=== PATIENT | male | born 1955 | race Caucasian/White ===

== ENCOUNTER → 2019-04-17 | Outpatient (CLI) | payer BC, OTHER ==
[~2019-04-17] MED LIST: FISH100049 PO; LISI-538 PO; SIMV20TA2 PO
--- NOTE | 2019-04-20 18:21 | SLEEPHOME ---
DATE OF PROCEDURE: 04/17/2019 ORDERED BY: Aster Alexandra [facility] home sleep testing was performed due to concern for the obstructive sleep apnea syndrome. For testing a nocturnal T3 respiratory monitoring device was used. Continuous record was made of pulse, oxygen saturation, airflow, chest, abdominal strain and body position. 9 hours and 59 minutes of data were reviewed. There were 7 hours and 32 minutes marked as time in bed. During the interval marked time in bed, there 225 respiratory events identified of 10 seconds in duration or greater for respiratory event index of 29.8. The events were primarily obstructive. Baseline pulse rate 68, pulse rate ranged 55-95. Baseline saturation 92%. Saturations fell as low as 77% with an oxygen desaturation index of 25.5. Testing was performed in both the supine and nonsupine positions. IMPRESSION: Abnormal home sleep testing with repetitive respiratory events and oxygen desaturations to 77% with a respiratory event index of 29.8 is consistent with the obstructive sleep apnea syndrome. RECOMMENDATIONS: The patient should be encouraged to undergo a formal sleep evaluation and in laboratory pressure titration.
== END ==
LOC: M SLEEP HO 10:47
PROVIDERS: ATTEND Nurse Practitioner Family
DX: R06.83 Snoring (principal); R79.81 Abnormal blood-gas level

== ENCOUNTER → 2019-04-24 | Outpatient (REF) | payer OTHER ==
[2019-04-24 14:06] LABS: APPEARANCE, URINE CLEAR (CLEAR); BACTERIA, URINE AUTO NEGATIVE (NEGATIVE); BILIRUBIN, URINE AUTO NEGATIVE (NEGATIVE); BLOOD, URINE BLOOD NEGATIVE (NEGATIVE); COLOR, URINE YELLOW (YELLOW); GLUCOSE, URINE (UA) AUTO 2+ mg/dL (NEGATIVE); KETONE, URINE AUTO TRACE mg/dL (NEGATIVE); LEUKOCYTE ESTERASE, URINE AUTO NEGATIVE (NEGATIVE); MUCUS, URINE SMALL (NEGATIVE); NITRITE, URINE AUTO NEGATIVE (NEGATIVE); PROTEIN, URINE AUTO NEGATIVE (NEGATIVE); RBC, URINE AUTO 1 /HPF (0-3); SPECIFIC GRAVITY URINE AUTO 1.021 (1.002-1.035); SQUAMOUS EPITHELIAL CELL UR AU 0 /HPF (0-6); UROBILINOGEN, URINE AUTO 0.2 mg/dL (0.0-2.0); WBC, URINE AUTO 0 /HPF (0-3)
== END ==
LOC: M SMT 12:47
PROVIDERS: ATTEND Nurse Practitioner Women's Health
DX: R31.29 Other microscopic hematuria (principal)

== ENCOUNTER → 2019-09-29 | Outpatient (REF) | payer OTHER ==
[2019-09-29 13:58] LABS: AMORPHOUS SEDIMENT MODERATE (NEGATIVE); APPEARANCE, URINE TURBID (CLEAR); BACTERIA, URINE AUTO NEGATIVE (NEGATIVE); BILIRUBIN, URINE AUTO NEGATIVE (NEGATIVE); BLOOD, URINE BLOOD 1+ (NEGATIVE); COLOR, URINE YELLOW (YELLOW); GLUCOSE, URINE (UA) AUTO NEGATIVE (NEGATIVE); KETONE, URINE AUTO NEGATIVE (NEGATIVE); LEUKOCYTE ESTERASE, URINE AUTO NEGATIVE (NEGATIVE); MUCUS, URINE SMALL (NEGATIVE); NITRITE, URINE AUTO NEGATIVE (NEGATIVE); PROTEIN, URINE AUTO NEGATIVE (NEGATIVE); RBC, URINE AUTO 0 /HPF (0-3); SPECIFIC GRAVITY URINE AUTO 1.024 (1.002-1.035); SQUAMOUS EPITHELIAL CELL UR AU 0 /HPF (0-6); UROBILINOGEN, URINE AUTO 0.2 mg/dL (0.0-2.0); WBC, URINE AUTO 0 /HPF (0-3)
== END ==
LOC: M SMT 13:08
PROVIDERS: ATTEND Nurse Practitioner Women's Health
DX: R31.0 Gross hematuria (principal)

== ENCOUNTER → 2020-09-27 | Outpatient (CLI) | payer SELFPAY ==
[~2020-09-27] MED LIST changes: -SIMV20TA2 PO; +SIMV20TA22 PO
== END ==
LOC: M LABSMTC 10:54
PROVIDERS: ATTEND Pediatrics
DX: Z20.828 Contact with and (suspected) exposure to other viral communicable diseases (principal)

== ENCOUNTER → 2020-12-19 | Outpatient (CLI) | payer SELFPAY ==
[~2020-12-19] MED LIST changes: -LISI-538 PO; +LISI20TA33 PO
== END ==
LOC: M LABSMTC 09:47
PROVIDERS: ATTEND Pediatrics
DX: Z20.822 Contact with and (suspected) exposure to COVID-19 (principal)